=== PATIENT | female | born 1975 | race Caucasian/White ===

== ENCOUNTER 2017-12-19 06:28 | Day surgery (SDC) | payer MEDICAID ==
[~2017-12-19 06:28] MED LIST: CEFAZOLIN 2 GM/50 ML (PMX) 50 ML IVPB
[2017-12-19] MEDS: SOD CHLORIDE 0.9% 1,000 ML IV (10:30)
[2017-12-19 10:34] LABS: ADD MAN DIFF? NO
[2017-12-19 10:42] LABS: WHITE BLOOD COUNT 7.3 10^3/ul (4.8-10.8)
[2017-12-19 10:42] LABS: BASOPHILS % 0.6 % (0.0-2.0); EOSINOPHILS # 0.3 10^3/ul (0.0-0.5); EOSINOPHILS % 4.4 % (0.0-7.0); HEMATOCRIT 39.4 % (37.0-47.0); HEMOGLOBIN 13.7 g/dl (12.0-16.0); LYMPHOCYTES # 1.7 10^3/ul (0.8-2.9); LYMPHOCYTES % 23.6 % (15.0-51.0); MEAN CORPUSCULAR HGB CONC 34.8 g/dl (32.0-37.0); MEAN CORPUSCULAR VOLUME 83.3 fl (82.0-101.0); MEAN PLATELET VOLUME 10.5 fl (7.4-10.4); MONOCYTE # 0.3 10^3/ul (0.3-0.9); MONOCYTES % 4.4 % (0.0-11.0); NEUTROPHIL # 4.9 10^3/ul (1.6-7.5); NEUTROPHILS % 66.9 % (39.0-77.0); PLATELET COUNT 313 10^3/UL (140-415); RED BLOOD COUNT 4.73 10^6/ul (4.20-5.40); RED CELL DISTRIBUTION WIDTH 12.7 % (11.5-14.5)
[2017-12-19 10:43] LABS: PROTIME 12.2 Sec (11.9-14.9)
[2017-12-19 10:44] LABS: PARTIAL THROMBOPLASTIN TIME 26.9 Sec (23.0-35.0)
[2017-12-19 10:52] LABS: ALANINE AMINOTRANSFERASE 27 IU/L (13-69); ALBUMIN 3.7 g/dl (3.3-4.9); ALBUMIN/GLOBULIN RATIO 1.08; ALKALINE PHOSPHATASE 137 IU/L (42-121); ANION GAP 9 (5-13); ASPARTATE AMINO TRANSFERASE 29 IU/L (15-46); BILIRUBIN,INDIRECT 0.3 mg/dl (0-1.1); BILIRUBIN,TOTAL 0.3 mg/dl (0.2-1.3); BLOOD UREA NITROGEN 14 mg/dl (7-20); CALCIUM 9.4 mg/dl (8.4-10.2); CARBON DIOXIDE 26 mmol/L (21-31); CHLORIDE 101 mmol/L (97-110); Estimated GFR > 60 mL/min (>60); GLUCOSE 314 mg/dl (70-220); POTASSIUM 4.5 mmol/L (3.5-5.1); SODIUM 136 mmol/L (135-144); TOTAL PROTEIN 7.1 g/dl (6.1-8.1)
[2017-12-19] MEDS: INSULIN REGULAR, HUMAN 100 UNIT/1 ML 3ML VIAL SC (11:18)
[2017-12-19] MEDS ORDERED: MIDAZOLAM 1 MG/ML 2 ML INJ (12:32)
[2017-12-19] MEDS ORDERED: FENTAnyl 50 MCG/ML VIAL (12:32)
[2017-12-19] MEDS: BUPIVACAINE 0.25% (MPF) 30 ML INJ (13:07)
[2017-12-19] MEDS ORDERED: CEFAZOLIN 1 GM INJ (13:08)
[2017-12-19] MEDS ORDERED: PROPOFOL 20 ML (13:08)
[2017-12-19] MEDS ORDERED: LIDOCAINE 2% (SDV) 5 ML INJ (13:08)
[2017-12-19] MEDS ORDERED: ONDANSETRON 4 MG INJ (13:09)
[2017-12-19] MEDS ORDERED: ONDANSETRON 4 MG INJ IV (13:30)
[2017-12-19] MEDS ORDERED: MEPERIDINE 25 MG INJ IV (13:30)
[2017-12-19] MEDS ORDERED: FENTAnyl 50 MCG/ML VIAL IV (13:30)
[2017-12-19] MEDS ORDERED: HYDROCODONE/APAP (5/325) TAB PO (13:30)
[2017-12-19] MEDS ORDERED: DIPHENHYDRAMINE 50 MG INJ IV (13:30)
[2017-12-19] MEDS ORDERED: HYDROmorphONE 1 MG/5 ML IV SYRINGE IV ×2 (13:30)
== END 2017-12-19 14:50 | disposition home or self-care (01) ==
LOC: SDS 06:28
DX: N60.12 Diffuse cystic mastopathy of left breast (principal); E11.9 Type 2 diabetes mellitus without complications; J45.909 Unspecified asthma, uncomplicated
CPT/HCPCS: 14001; 80053; 82962; 85025; 85610; 85730; 88307